=== PATIENT | female | born 1940 | race Caucasian/White ===

== ENCOUNTER → 2016-03-16 | Day surgery (SDC) | payer OTHER ==
[~2016-03-16] MED LIST: BUPIVACAINE HCL PF 0.25% 30 ML VIAL ONE; LACTATED RINGER'S 1000 ML INJ 1,000 ML ONE; MIDAZOLAM HCL 2 MG/2 ML VIAL ONE; ONDANSETRON HCL 4 MG/2 ML VIAL IV PUSH ONE; PROPOFOL 200 MG/20 ML AMP IV ONE; ceFAZolin 2 GM PREMIX 50 ML ONE; ceFAZolin INJ 1,000 MG VIAL ONE
--- NOTE | 2016-03-17 12:48 | MP ---
cc: [facility] DATE OF SURGERY: 03/16/2016 PREOPERATIVE DIAGNOSIS 1. Left hallux abductovalgus and painful bunion. 2. Second digit hammertoe. 3. Metatarsalgia. POSTOPERATIVE DIAGNOSIS 1. Left hallux abductovalgus and painful bunion. 2. Second digit hammertoe. 3. Metatarsalgia. PROCEDURE PERFORMED 1. Modified Lapidus bunionectomy first metatarsal medial cuneiform fusion. 2. Proximal interphalangeal joint fusion left second digit. 3. Second metatarsal osteotomy. SPECIMEN None. ESTIMATED BLOOD LOSS Less than 30 mL. COMPLICATIONS None. ANESTHESIA General with local, 28 cc of 0.25% Marcaine plain. DRAINS None. TOURNIQUET TIME 82 minutes at a setting of 215 mmHg. PLAN OF ACTIVITY PACU then discharge home when stable per same-day surgery criteria. JUSTIFICATION FOR PROCEDURE This is a pleasant 75-year-old female with worsening bunion pain. She has exhausted conservative options. We discussed surgical intervention. The patient understood the risks and benefits. We decided to proceed once cleared per primary care doctor. PROCEDURE IN DETAIL Under mild sedation the patient was brought into the operating room, placed on the operating table in the supine position. Following the induction of general anesthesia, local anesthesia was obtained about the forefoot utilizing standard block fashion. The patient's left foot was then scrubbed, prepped and draped in the usual aseptic fashion. The foot was elevated, exsanguinated, and the previously placed pneumatic ankle tourniquet was inflated to 215 mmHg. An incision was made over the dorsal aspect of the first metatarsal. Sharp and blunt dissection was carried down to the first MPJ joint capsule. The extensor hallucis longus tendon was retracted medially. Sharp and blunt dissection was carried down to the level of the conjoined tendon and fibular suspensory ligament in which lateral contractures of the first MPJ were then severed. Next, an L-shaped capsulotomy was performed revealing a prominent dorsomedial eminence with minimal arthritic findings within the first MPJ. Sharp and blunt dissection was then carried down to the level of the base of the first metatarsal medial cuneiform joint. The joint was then resected and a biplanar wedge allowing for plantar flexing of the first ray and closing down the first and second intermetatarsal angle. Once being certain that the first metatarsal base and the head of the medial cuneiform was free from cartilage it was then prepared for arthrodesis site. A screw was then placed from dorsal distal to plantar proximal securing the fixation. A medial plate was then placed. Two screws were placed just proximal to the arthrodesis site at the level the medial cuneiform utilizing the compression ramp within the [employer] plate. A bicortical screw was then placed further compressing the arthrodesis site and then two screws were then placed within the plate distally. This secured the fixation. There was no motion of the arthrodesis site with correction of the bunion deformity, minimal HAV, near parallel first metatarsal medial cuneiform joint angle. Next, the wound was then closed in layers. Redundant capsule was transected. Skin was closed utilizing nylon. An incision was made over the dorsal aspect of the patient's second digit PIPJ which was slight curvilinear at the second MPJ. Sharp and blunt dissection was carried down to a bow strung extensor digitorum longus tendon in which Z tendon lengthening approach took place, lengthening the tendon. Sharp and blunt dissection was carried down to the level of the proximal interphalangeal joint. The head of the second proximal phalanx was then resected just beyond the cartilage surface. The base of the middle phalanx of the second was then relieved of its cartilage preparing for arthrodesis site. Next, sharp and blunt dissection was carried down to the level of the second MPJ. A linear capsulotomy was performed. A McGlamry elevator was introduced. There still was a contraction that remained. Next, a dorsal distal to plantar proximal second metatarsal osteotomy was performed and a screw was then placed fixating the capital fragment of the second metatarsal after it was shortened approximately 1-2 mm. The redundant shelf was then transected allowing for good range of motion of the second MPJ. Next, a wire was then placed through the middle phalanx. The distal phalanx then retrograded back across the proximal phalanx anchoring just short of the second MPJ. This was visualized under fluoroscopy, absent hammertoe, adequate alignment. The wound was flushed with copious amounts of normal saline. The tendon was then repaired under loose physiologic tension utilizing Vicryl. Skin was closed utilizing nylon. Upon relieving the tourniquet there is a prompt hyperemic response without any delayed capillary fill time. A bandage was placed. The patient was positioned within a controlled ankle motion boot. She is heel transfer weight bear only. She will ice and elevate. I will see the patient in 3-5 days. EVAN Jorge /3:02 PM /12:23 PM
== END | disposition home or self-care (01) ==
LOC: ESDC 11:06
PROVIDERS: ATTEND Podiatrist Foot & Ankle Surgery
DX: M20.12 Hallux valgus (acquired), left foot (principal); M21.612 Bunion of left foot; M20.42 Other hammer toe(s) (acquired), left foot; M77.42 Metatarsalgia, left foot
CPT/HCPCS: 01480; 28285; 28297; 28308; 73630; 76000; C1713; J0690; J2250; J2405; J3010; J7120